=== PATIENT | male | born 1995 | race Caucasian/White ===

== ENCOUNTER 2017-05-18 18:53 | Emergency (ER) | payer BC ==
[2017-05-18 19:20] VITALS: BP 128/69
[2017-05-18] MEDS ORDERED: Amoxicillin PO (*) 500 MG CAP PO ONE (19:35)
--- NOTE | 2017-05-18 19:36 | UC ---
Throat Pain/Nasal Oscar HPI - HPI Summary HPI Summary: Patient complaining of a few days of left sided sinus pressure, inc SOB and cough. - History of Current Complaint Chief Complaint: UCRespiratory Stated Complaint: SINUSES Time Seen by Provider: 05/18/17 19:28 Hx Obtained From: Patient Onset/Duration: Sudden Onset, Lasting Days Severity: Moderate Associated Signs & Symptoms: Positive: Dysphagia, Wheezing, Sinus Discomfort, Nasal Discharge - Allergies/Home Medications Allergies/Adverse Reactions: Allergies Allergy/AdvReac Type Severity Reaction Status Date / Time No Known Allergies Allergy Verified 05/18/17 19:21 Home Medications: Home Medications Phenylephrine W/ Acetaminophen [Tylenol Sinus Congestion 5-325 mg] 2 tab PO PRN 05/18/17 [History] PMH/Surg Hx/FS Hx/Imm Hx Previously Healthy: Yes - Surgical History Surgical History: Yes Surgery Procedure, Year, and Place: appy - Family History Known Family History: Positive: Hypertension - Social History Alcohol Use: Weekly Substance Use Type: None Smoking Status (MU): Former Smoker Type: Smokeless Tobacco Review of Systems Constitutional: Negative Skin: Negative Eyes: Negative ENT: Sore Throat, Ear Ache, Nasal Discharge, Sinus Congestion, Sinus Pain/ Tenderness Respiratory: Shortness Of Breath, Cough Cardiovascular: Negative Gastrointestinal: Negative Genitourinary: Negative Motor: Negative Neurovascular: Negative Musculoskeletal: Negative Neurological: Headache Psychological: Negative Is Patient Immunocompromised?: No All Other Systems Reviewed And Are Negative: Yes Physical Exam Triage Information Reviewed: Yes Appearance: Well-Nourished, Ill-Appearing, Pain Distress Vital Signs: Initial Vital Signs Temp 99.4 F 05/18/17 19:15 Pulse 82 05/18/17 19:15 Resp 16 05/18/17 19:15 BP 128/69 05/18/17 19:15 Pulse Ox 100 05/18/17 19:15 Vital Signs Reviewed: Yes Eye Exam: Normal ENT: Positive: Pharyngeal erythema, Nasal congestion, Nasal drainage, TM bulging , Tonsillar swelling Dental Exam: Normal Neck exam: Normal Neck: Positive: Supple, Nontender, No Lymphadenopathy Respiratory Exam: Normal Respiratory: Positive: Chest non-tender, No respiratory distress, No accessory muscle use, Wheezing, Inspiration Cardiovascular Exam: Normal Cardiovascular: Positive: RRR, No Murmur, Pulses Normal Abdominal Exam: Normal Abdomen Description: Positive: Nontender, No Organomegaly, Soft Bowel Sounds: Positive: Present Musculoskeletal Exam: Normal Musculoskeletal: Positive: Strength Intact, ROM Intact, No Edema Neurological Exam: Normal Neurological: Positive: Alert, Muscle Tone Normal Psychological Exam: Normal Skin Exam: Normal Throat Pain/Nasal Course/Dx - Course Course Of Treatment: hx obtained, exam performed ,meds reviewed, treated for sinusitis and wheezing - Differential Dx/Diagnosis Differential Diagnosis/HQI/PQRI: Pharyngitis, Sinusitis Provider Diagnoses: sinusitis. wheezing Discharge - Discharge Plan Condition: Stable Disposition: HOME Prescriptions: Amoxicillin PO (*) [Amoxicillin 875 MG (*)] 875 mg PO BID #13 tab predniSONE TAB* [Deltasone TAB*] 40 mg PO DAILY #14 tab Patient Education Materials: Sinusitis (ED) Additional Instructions: 1. take the medication as prescribed. 2. Increase fluid intake and get plenty of rest.
== END 2017-05-18 19:47 | disposition home or self-care (01) ==
LOC: UCCORT 18:53
DX: J32.9 Chronic sinusitis, unspecified (principal); R06.2 Wheezing
CPT/HCPCS: 99202; A9270-GY; G0463

== ENCOUNTER 2018-11-30 10:33 | Emergency (ER) | payer BC ==
[2018-11-30 11:32] VITALS: BP 124/70
--- NOTE | 2018-11-30 12:08 | UC ---
UC General HPI - HPI Summary HPI Summary: 2 WEEK HX WORSENING HEADACHE, SINUS CONGESTION AND COUGH. TAKING MUCINEX WITH NO RELIEF. HX SINUSITS AND THIS FEELS THE SAME. + PURULENT DRAINAGE. TRIAGE NOTED A SORE THROAT WHICH PT DENIED TO MYSELF. PAST 3 DAYS NOTES PAIN AND SWELLING AROUND HIS R LOWER BACK TOOTH. + SWOLLEN GLAND BY THE TOOTH. - History of Current Complaint Chief Complaint: UCGeneralIllness Stated Complaint: SINUS,DENTAL COMPLAINT Time Seen by Provider: 11/30/18 12:00 Hx Obtained From: Patient Onset/Duration: Gradual Onset Timing: Constant Pain Intensity: 3 Associated Signs & Symptoms: Negative: Fever - Allergy/Home Medications Allergies/Adverse Reactions: Allergies Allergy/AdvReac Type Severity Reaction Status Date / Time No Known Allergies Allergy Verified 05/18/17 19:21 PMH/Surg Hx/FS Hx/Imm Hx - Additional Past Medical History Additional PMH: SINUSITIS - Surgical History Surgical History: Yes Surgery Procedure, Year, and Place: appy - Family History Known Family History: Positive: Hypertension - Social History Occupation: Student - [employer] Alcohol Use: Weekly Substance Use Type: None Smoking Status (MU): Former Smoker Type: Smokeless Tobacco - Immunization History Vaccination Up to Date: Yes Review of Systems All Other Systems Reviewed And Are Negative: Yes Constitutional: Negative: Fever ENT: Positive: Dental Pain, Nasal Discharge, Sinus Congestion, Sinus Pain/ Tenderness Respiratory: Positive: Cough Neurological: Positive: Headache Physical Exam Triage Information Reviewed: Yes Appearance: Well-Appearing Vital Signs: Initial Vital Signs Temp 97.5 F 11/30/18 11:26 Pulse 55 11/30/18 11:26 Resp 16 11/30/18 11:26 BP 124/70 11/30/18 11:26 Pulse Ox 99 11/30/18 11:26 Vital Signs Reviewed: Yes Eyes: Positive: Conjunctiva Clear ENT: Positive: Pharynx normal, Nasal congestion, TMs normal, Sinus tenderness. Negative: Nasal drainage Dental: Positive: Other: - R LOWER WISDOM TOOTH PARTLY ERUPTED AND SURROUND GUM IS RED AND MILDLY SWOLLEN.. Negative: Abscess @ Neck: Positive: Supple, Enlarged Nodes @ - ANGLE R JAW WITH TENDERNESS Respiratory: Positive: Lungs clear, Normal breath sounds Cardiovascular: Positive: RRR Abdomen Description: Positive: Nontender Musculoskeletal: Positive: ROM Intact Neurological: Positive: Alert Psychological: Positive: Age Appropriate Behavior Skin Exam: Normal Course/Dx - Diagnoses Provider Diagnosis: Sinusitis, Gum inflammation Discharge - Sign-Out/Discharge Documenting (check all that apply): Patient Departure All imaging exams completed and their final reports reviewed: No Studies - Discharge Plan Condition: Stable Disposition: HOME Prescriptions: Amoxicillin/Clavulanate TAB* [Augmentin TAB 875*] 875 mg PO BID 10 Days #20 tab Naproxen [Naprosyn 500 mg tab] 500 mg PO BID 5 Days #10 tablet Patient Education Materials: Sinusitis (ED), Toothache (ED) Referrals: No Primary Care Phys,NOPCP [Primary Care Provider] - Additional Instructions: FOLLOW UP WITH YOUR DENTIST AT HOME SOON POSSIBLE FOR THE DENTAL PAIN. RETURN IF SINUSES NOT BETTER IN 7-10 DAYS. - Billing Disposition and Condition Condition: STABLE Disposition: Home
== END 2018-11-30 12:17 | disposition home or self-care (01) ==
LOC: UCCORT 10:33
DX: J01.90 Acute sinusitis, unspecified (principal); K05.10 Chronic gingivitis, plaque induced; Z87.891 Personal history of nicotine dependence
CPT/HCPCS: 99212; G0463

== ENCOUNTER 2019-12-05 17:18 | Emergency (ER) | payer BC, OTHER ==
--- NOTE | 2019-12-05 18:09 | UC ---
Respiratory Complaint HPI - HPI Summary HPI Summary: Pt presents with request for COVID testing. Pt's father has tested positive for COVID but pt has not been in direct contact with father. Pt's brother was recently tested and pt has been in contact with him. - History of Current Complaint Chief Complaint: UCGeneralIllness Stated Complaint: TESTING Time Seen by Provider: 12/05/19 17:58 Hx Obtained From: Patient Onset/Duration: Other - does not symptoms Severity Currently: None Pain Intensity: 0 Aggravating Factors: Nothing Alleviating Factors: Nothing Associated Signs And Symptoms: Positive: Negative - Risk Factors Pulmonary Embolism Risk Factors: Negative Cardiac Risk Factors: Negative Pseudomonas Risk Factors: Negative Tuberculosis Risk Factors: Negative - Allergies/Home Medications Allergies/Adverse Reactions: Allergies Allergy/AdvReac Type Severity Reaction Status Date / Time No Known Allergies Allergy Verified 12/05/19 17:37 Home Medications: Home Medications NK [No Home Medications Reported] 12/05/19 [History Confirmed 12/05/19] PMH/Surg Hx/FS Hx/Imm Hx Previously Healthy: Yes - Surgical History Surgical History: Yes Surgery Procedure, Year, and Place: appy - Family History Known Family History: Positive: Hypertension - Social History Occupation: Student Lives: With Family Alcohol Use: Weekly Substance Use Type: Marijuana Substance Use Comment - Amount & Last Used: occasional use Smoking Status (MU): Current Some Day Smoker Type: Smokeless Tobacco Have You Smoked in the Last Year: Yes - marijuana - Immunization History Vaccination Up to Date: Yes Review of Systems All Other Systems Reviewed And Are Negative: Yes Constitutional: Positive: Negative Skin: Positive: Negative Eyes: Positive: Negative ENT: Positive: Negative Respiratory: Positive: Negative Cardiovascular: Positive: Negative Gastrointestinal: Positive: Negative Genitourinary: Positive: Negative Motor: Positive: Negative Neurovascular: Positive: Negative Musculoskeletal: Positive: Negative Neurological/Mental Status: Positive: Negative Psychological: Positive: Negative Is Patient Immunocompromised?: No Physical Exam Triage Information Reviewed: Yes Appearance: Well-Appearing Vital Signs Reviewed: Yes Eye Exam: Normal ENT Exam: Normal Dental Exam: Normal Neck exam: Normal Respiratory: Positive: Normal breath sounds, No respiratory distress Cardiovascular Exam: Normal Musculoskeletal Exam: Normal Neurological Exam: Normal Psychological Exam: Normal Skin Exam: Normal Respiratory Course/Dx - Course Course Of Treatment: I went and saw pt at curbside. Full and proper PPE worn. I listened to his lungs. Bilateral clear to auscultation. COVID testing done. - Differential Dx/Diagnosis Differential Diagnosis/HQI/PQRI: Asthma, Bronchitis, Lower Resp Infection, Other - COVID Provider Diagnosis: Educated about COVID-19 virus infection, Close exposure to COVID-19 virus Discharge ED - Sign-Out/Discharge Documenting (check all that apply): Patient Departure All imaging exams completed and their final reports reviewed: No Studies - Discharge Plan Condition: Stable Disposition: HOME Forms: COVID-19 Tested & Isolation Referrals: [facility] [Outside] No Primary Care Phys,NOPCP [Primary Care Provider] - - Billing Disposition and Condition Condition: STABLE Disposition: Home
== END 2019-12-05 18:32 | disposition home or self-care (01) ==
LOC: UCCORT 17:18
DX: Z03.818 Encounter for observation for suspected exposure to other biological agents ruled out (principal); Z72.0 Tobacco use
CPT/HCPCS: 87635; 99211; G0463